=== PATIENT | male | born 1995 | race Caucasian/White ===

== ENCOUNTER 2021-09-03 19:32 | Emergency (ER) | payer MEDICAID ==
[~2021-09-03] VITALS: Ht 167.6 cm; Wt 80.8 kg
[2021-09-03] MEDS ORDERED: SODIUM CHLORIDE 0.9% 1000ML BAG (SEPSIS BOLUS) IV ONE (20:30)
[2021-09-03] MEDS ORDERED: CEFTRIAXONE 1 G PREMIX 50 ML IV ONE (20:30)
[2021-09-03] MEDS ORDERED: KETOROLAC 15MG/ML VIAL IV ONE (20:30)
[2021-09-03 20:58] LABS: BASOPHILS % 0.3 % (0.0-2.0); EOSINOPHILS % 1.1 % (0.0-5.0); HEMATOCRIT. 46.2 % (42.0-52.0); HEMOGLOBIN. 15.3 g/dL (14.0-18.0); LYMPHOCYTES % 16.1 % (20.0-50.0); MEAN CORPUSCULAR HEMOGLOBIN 28.5 pg (28.0-32.0); MEAN CORPUSCULAR VOLUME 86.2 fL (80.0-94.0); MEAN PLATELET VOLUME 9.7 fl (7.4-10.4); MONOCYTES % 5.2 % (2.0-8.0); NEUTROPHILS % 77.3 % (40.0-76.0); PLATELET 183 x1000/uL (130-400); RED BLOOD CELL COUNT 5.36 mill/uL (4.7-6.1); RED CELL DISTRIBUTION WIDTH 13.3 % (11.6-14.6)
[2021-09-03] MEDS ORDERED: ONDANSETRON HCL 4MG/2ML INJ IV NR (21:00)
[2021-09-03 21:06] LABS: CHLORIDE 106 mEq/L (98-107)
[2021-09-03 21:15] LABS: C REACTIVE PROTEIN QUANT 5.4 mg/L (0.0-3.0); CREATINE KINASE 220 IU/L (39-308)
[2021-09-03] MEDS ORDERED: KETOROLAC 15MG/ML VIAL IV NR (22:30)
[2021-09-03] MEDS ORDERED: IOHEXOL-300 100 ML BOTTLE ONE (22:43)
[2021-09-03] MEDS ORDERED: CEFTRIAXONE 1 G PREMIX 50 ML IV NR (22:45)
[2021-09-04 00:10] LABS: CLARITY URINE CLEAR (CLEAR); COLOR URINE YELLOW (YELLOW); KETONES URINE NEGATIVE (NEGATIVE); LEUKOCYTE ESTERASE URINE NEGATIVE (NEGATIVE); NITRITE URINE NEGATIVE (NEGATIVE); OCCULT BLOOD URINE NEGATIVE (NEGATIVE); PH URINE 7.5 (4.5-8.0); PROTEIN URINE NEGATIVE (NEGATIVE); SPECIFIC GRAVITY URINE 1.021 (1.005-1.030); UROBILINOGEN URINE 0.2 E.U./dL (0.2-1.0)
[2021-09-04] MEDS ORDERED: IBUP-2029 MT (00:30)
[2021-09-04] MEDS ORDERED: CEPH500C2 MT (00:30)
[2021-09-04] MEDS ORDERED: ONDA4TAB5 MT (00:30)
[2021-09-04 00:51] VITALS: BP 102/57
== END 2021-09-04 00:52 | disposition home or self-care (01) ==
LOC: ER 19:32 → CANBEDREQ 09-04 20:45
DX: R10.32 Left lower quadrant pain (principal); R50.9 Fever, unspecified; R00.0 Tachycardia, unspecified
CPT/HCPCS: 36415; 71045; 74177; 80053; 81003; 82550; 83605; 84145; 85025; 86140; 87040; 87086; 93005; 96361; 96365; 96375; 99285; J0696; J1885; J2405; J7030; Q9967; Z7610

== ENCOUNTER 2022-03-09 15:17 | Emergency (ER) | payer SELFPAY ==
[~2022-03-09] VITALS: Ht 160 cm; Wt 82.0 kg
[~2022-03-09 15:17] MED LIST: CEPH500C2 MT; IBUP-2029 MT; ONDA4TAB5 MT
[2022-03-09 15:56] VITALS: BP 117/68
[2022-03-09] MEDS ORDERED: IBUP-2028 MT (18:23)
[2022-03-09] MEDS ORDERED: IBUPROFEN 400MG TABLET PO ONE (18:30)
== END 2022-03-09 18:36 | disposition home or self-care (01) ==
LOC: ER 15:17
DX: M25.542 Pain in joints of left hand (principal); M25.541 Pain in joints of right hand
CPT/HCPCS: 99282

== ENCOUNTER 2022-03-14 16:05 | Emergency (ER) | payer MEDICAID ==
[~2022-03-14] VITALS: Ht 157.5 cm; Wt 83.0 kg
[~2022-03-14 16:05] MED LIST changes: +IBUP-2028 MT
[2022-03-14 16:13] VITALS: BP 121/79
== END 2022-03-15 00:33 | disposition left against medical advice (07) ==
LOC: ER 16:05
DX: Z53.21 Procedure and treatment not carried out due to patient leaving prior to being seen by health care provider (principal)